=== PATIENT | male | born 1945 | race Caucasian/White ===

== ENCOUNTER 2020-03-27 12:35 | Observation (INO) | payer MEDICARE, BC ==
[~2020-03-27] VITALS: Ht 167.6 cm; Wt 89.0 kg
[~2020-03-27 12:35] MED LIST: AMIODARONE200 MG PO; ASPIRIN EC81 MG PO; ATENOLOL100 M1 PO; HYDROCHLOROT25 MG PO; PRADAXA150 MG PO; TAMSULOSIN HCL0.4 MG PO; TENORMIN PO
--- NOTE | 2020-03-27 12:38 | NUR ---
PATIENT TO ROOM VIA WHEELCHAIR FOR BEDSIDE TRIAGE.
[2020-03-27 13:09] LABS: HEMATOCRIT 42.7 % (39.0-50.0); HEMOGLOBIN 14.7 g/dl (14.0-18.0); IMMATURE GRANULOCYTES 0.2 % (0.0-5.0); MEAN CELL VOLUME 93.8 fL CALC (80.0-100.0); MEAN CORPUSCULAR HGB 32.3 pG CALC (26.0-32.0); MEAN CORPUSCULAR HGB CONC 34.4 g/dL CAL (32.0-36.0); NEUT# 2.28 thou/uL (1.82-7.42); RED BLOOD COUNT 4.55 mill/uL (4.70-6.10); RED CELL DISTRI WIDTH 12.8 % (11.5-15.5)
--- NOTE | 2020-03-27 13:12 | NUR ---
PATIENT RESTING,DENIES CHEST PAIN AT PRESENT. CALL LUA IN REACH
[2020-03-27 13:22] LABS: ANION GAP 9 (6-22 (CALC)); BUN 19 mg/dL (8-23); BUN/CREATININE RATIO 25 (12-20 (CALC)); CARBON DIOXIDE 30 mmol/l (22-30); CHLORIDE 105 mmol/l (95-108); CREATININE 0.8 mg/dL (0.7-1.3); GFR > 60 ML/MIN (>=60 (CALC)); GFR FOR AFR.AMER. > 60 ML/MIN (>=60 (CALC)); POTASSIUM 3.8 mmol/l (3.5-5.1); SODIUM 140 mmol/l (137-146)
--- NOTE | 2020-03-27 14:14 | NUR ---
NO C/O. READING A BOOK. CALL LUA IN REACH.
[2020-03-27] MEDS ORDERED: LIPITOR40 M1 PO (14:17)
--- NOTE | 2020-03-27 15:30 | NUR ---
PATIENT RESTING COMFORTABLY IN STRETCHER IN NAD AND DENIES ANY NEEDS. HE IS AWARE OF PENDING RESULTS AND PLAN FOR ADMISSION.
[2020-03-27] MEDS ORDERED: BICALUTAMIDE50 MG PO (15:34)
[2020-03-27] MEDS ORDERED: ELIQUIS5 MG PO (15:35)
--- NOTE | 2020-03-27 16:15 | NUR ---
ASSUMED CARE FOR PATIENT REPORT ONLY.
--- NOTE | 2020-03-27 16:31 | NUR ---
Admission Note Report Given to: RAMIREZ MARTINEZ Transported by: Wheelchair X Stretcher Transported with: X Nurse Transporter X Patent IV O2 X Enginehouse Brakeman Location: ICU X MS2 PATIENT LEFT ED IN STABLE CONDITION.
--- NOTE | 2020-03-27 16:31 | NUR ---
REPORT CALLED TO RAMIREZ MARTINEZ.
[2020-03-27 16:48] VITALS: BP 143/70
--- NOTE | 2020-03-27 17:19 | NUR ---
ABBY,ANRP AT BEDSIDE.
--- NOTE | 2020-03-27 18:37 | NUR ---
LAB AT BEDSIDE
[2020-03-27 19:00] VITALS: BP 137/64
--- NOTE | 2020-03-27 19:03 | NUR ---
REPORT FROM WOODROW GUZMÁN. ASSUMED PT CARE.
--- NOTE | 2020-03-27 20:52 | NUR ---
PT MEDICATED ORDERED. PT NOTED SITTING UP IN CHAIR AT BEDSIDE. DECAF COFFEE PROVIDED UPON REQUEST. NO APAPRENT DISTRESS NOTED. PT DENIES ANY CP OR SOB . PT STATES FLUTTERING IN CHEST UNCHANGED, HAS REMAINED SAME FOR ABOUT A WEEK THAT WAS POSSIBLY EXACERBATED BY LIFTING SOMETHING HEAVY. TRAIN CONTROLLER IN PLACE. IV SITE APPEARS HEALTHY. DISCUSSED POC. PT VERBALIZED UNDERSTANDING. PT DENIES ANY CURRENT WANTS OR NEEDS. CALL LIGHT WITHIN REACH. WILL CONTINUE TO MONITOR.
[2020-03-28] VITALS: BP 133/67
--- NOTE | 2020-03-28 00:14 | NUR ---
PT RESTING IN BED WITH EYES CLOSED. NO APPARENT DISTRESS NOTED. RESPIRATIONS EVEN AND UNLABORED. PROFILE TRIMMER IN PLACE. CALL LIGHT WITHIN REACH. WILL CONTINUE TO MONITOR.
[2020-03-28 04:00] VITALS: BP 127/75
--- NOTE | 2020-03-28 04:11 | NUR ---
PT RESTING IN BED WITH EYES CLOSED. NO APPARENT DISTRESS NOTED. RESPIRATIONS EVEN AND UNLABORED. VSS. SODA FOUNTAIN OPERATOR IN PLACE. CALL LIGHT WITHIN REACH. WILL CONTINUE TO MONITOR.
[2020-03-28 06:39] LABS: HEMATOCRIT 42.2 % (39.0-50.0); HEMOGLOBIN 14.4 g/dl (14.0-18.0); MEAN CELL VOLUME 94.6 fL CALC (80.0-100.0); MEAN CORPUSCULAR HGB 32.3 pG CALC (26.0-32.0); MEAN CORPUSCULAR HGB CONC 34.1 g/dL CAL (32.0-36.0); NEUT# 2.75 thou/uL (1.82-7.42); RED BLOOD COUNT 4.46 mill/uL (4.70-6.10); RED CELL DISTRI WIDTH 12.8 % (11.5-15.5)
[2020-03-28 07:35] LABS: ALBUMIN 3.8 g/dL (3.2-5.0); ALKALINE PHOSPHATASE 47 u/l (38-126); ANION GAP 10 (6-22 (CALC)); BUN 19 mg/dL (8-23); BUN/CREATININE RATIO 25 (12-20 (CALC)); CARBON DIOXIDE 28 mmol/l (22-30); CHLORIDE 104 mmol/l (95-108); CHOLESTEROL HDL RATIO 2.1 (<4.4 (CALC)); CREATININE 0.8 mg/dL (0.7-1.3); GFR > 60 ML/MIN (>=60 (CALC)); GFR FOR AFR.AMER. > 60 ML/MIN (>=60 (CALC)); HDL CHOLESTEROL 56 mg/dL (>=40); POTASSIUM 3.8 mmol/l (3.5-5.1); SODIUM 139 mmol/l (137-146); TOTAL CHOLESTEROL 118 mg/dl (0-199); TOTAL PROTEIN 6.3 g/dL (6.3-8.2)
[2020-03-28 07:40] LABS: SGOT/AST 82 u/l (19-48)
[2020-03-28 07:58] VITALS: BP 137/71
--- NOTE | 2020-03-28 07:58 | NUR ---
RECIEVED REPORT FROM RAMIREZ DICKINSON. PT SITTING UP ON SIDE OF BED UPON ENTERING ROOM. INTRODUCED SELF TO PT AND DISCUSSED POC. PT IS A/O X3. ASSESSMENT AND VITALS COMPLETED. RESPIRATIONS ARE EVEN AND UNLABORED ON ROOM AIR. HEART RHYTHM IS NORMAL WITH TELE IN PLACE, SR PER ER MONITORING. BOWEL SOUNDS ARE ACTIVE, LAST REPORTED BM 03/28/20. RADIAL AND PEDAL PUSLES ARE STRONG. #20G IN LAC FLUSHED, SITE APPEARS HEALTHY AND PATENT.SKIN IS WARM AND INTACT. PT DENIES OF ANY PAINS OR DISCOMFORTS AT THIS TIME. ALL SAFETY PRECAUTIONS ARE IN PLACE. WILL CONTINUE TO MONITOR
--- NOTE | 2020-03-28 08:29 | NUR ---
DR FONTANA AND ABBY,ANRP AT BEDSIDE
[2020-03-28 10:20] LABS: CALCULATED LDLCHOLESTEROL 44 mg/dL (62-129 (CALC)); TOTAL TRIGLYCERIDES 92 mg/dl (30-149); VLDL CHOLESTROL 18 mg/dl (0-38 (CALC))
[2020-03-28 10:30] VITALS: BP 122/65
--- NOTE | 2020-03-28 12:31 | NUR ---
PT SITTING IN RECYLINER WATCHING TV . RESPIRATIONS ARE EVEN AND UNLABORED ON ROOM AIR. TELE MONITORING IN PLACE. PT DENIES OF ANY PAINS OR DISCOMFORTS AT THIS TIME. ALL SAFETY PRECAUTIONS ARE IN PLACE WITH CALL LIGHT IN REACH. WILL CONTINUE TO MONITOR.
--- NOTE | 2020-03-28 13:11 | NUR ---
PT EDUCXATED ON DISCHARGE INSTRUCTIONS. PT VERLAIZED UNDERSTANDING. TELE REMOVED. ER NOTFIED. IV REMOVED. PT TOELRATED WELL.PT DRESSING AT THIS TIME. WILL CONTINUE TO MONITOR
--- NOTE | 2020-03-28 13:14 | NUR ---
Discharge instructions given. Patient verbalizes understanding of same. Discharged in stable condition via Wheelchair to Home with family. All belongings sent with pt. PT DISCHARGED HOME IN STABLE CONDITION ACCOMPAINED BY MED NDIAYE. PT LEFT WITH ALL BELONINGS AND DISCHARGE INSTRUCTIONS. WITH ADDI AND RODRICK CARDS.
== END 2020-03-28 13:14 | disposition home or self-care (01) ==
LOC: ED 12:35 → ED-I 13:03 → ED 14:23 → MS2 14:24
PROVIDERS: Family Medicine; Nurse Practitioner; ADMIT Internal Medicine; ATTEND Internal Medicine
DX: R07.9 Chest pain, unspecified (principal); I49.3 Ventricular premature depolarization; I48.0 Paroxysmal atrial fibrillation; I10 Essential (primary) hypertension; N40.0 Benign prostatic hyperplasia without lower urinary tract symptoms; Z95.0 Presence of cardiac pacemaker; Z79.01 Long term (current) use of anticoagulants; Z20.822 Contact with and (suspected) exposure to COVID-19

== ENCOUNTER 2021-03-21 10:56 | Emergency (ER) | payer MEDICARE, BC ==
[~2021-03-21] VITALS: Ht 167.6 cm; Wt 85.9 kg
[~2021-03-21 10:56] MED LIST changes: +BICALUTAMIDE50 MG PO; +ELIQUIS5 MG PO; +LIPITOR40 M1 PO
[2021-03-21 13:51] VITALS: BP 134/81
== END 2021-03-21 13:51 | disposition home or self-care (01) ==
LOC: ED 10:56
DX: R51.9 Headache, unspecified (principal); R50.9 Fever, unspecified; J02.9 Acute pharyngitis, unspecified; I10 Essential (primary) hypertension; Z95.0 Presence of cardiac pacemaker; Z20.822 Contact with and (suspected) exposure to COVID-19